=== PATIENT | male | born 1965 | race Hispanic/Latino ===

== ENCOUNTER 2016-11-10 10:08 | Emergency (ER) | payer SELFPAY ==
[2016-11-10] MEDS ORDERED: Ondansetron HCl/PF 4 MG/2 ML Vial ONE (11:09)
--- NOTE | 2016-11-10 11:43 | RAD ---
RIGHT ANKLE 2 VIEWS: DATE: 05/10/16. FINDINGS: The lateral view was omitted on this series. There does appear to be a calcaneal fracture which is detailed elsewhere. The remainder of the foot appeared intact. Degenerative changes are seen in th e 1st tarsal metatarsal joint. IMPRESSION: Calcaneal fracture. POS: HOME
--- NOTE | 2016-11-10 11:48 | RAD ---
RIGHT FOOT 3 VIEWS: DATE: 11/10/16. FINDINGS: There is a comminuted calcaneal fracture with slight distraction of some of the fragments. The frac ture line is seen mainly through the posterior part of the bone up to about its mid point. The talu s appears intact on these views. There is marked lateral swelling at the ankle, but no fracture or widening of the ankle mortise. Bony spurring at the tip of the medial malleolus is probably from an old injury. A small ossicle is seen at the tip of the lateral malleolus. IMPRESSION: Comminuted calcaneal fracture. POS: HOME
--- NOTE | 2016-11-10 12:20 | CT ---
CT OF THE RIGHT ANKLE AND FOOT: Date: 11-10-16 Technique: Axial slices were acquired and then coronal and sagittal reconstructions were done follow ing an injury. FINDINGS: A multiply comminuted fracture is present through the body of the calcaneus, mainly through the midp ortion of the bone and posteriorly. There is intraarticular extent of many of the fracture lines int o the talocalcaneal joint and into the calcaneal-cuboid joint. A small bony density on the dorsum of the navicular may not be acute. Considerable lateral swelling is seen over the lateral malleolus. T he lateral part of the ankle joint is somewhat wide so there may be significant ligamentous damage o n this side. The articulation of the tarsals with the metatarsal seems normal. I do not see a disloc ation here. Fractures in the distal portion of the joint were not appreciated. IMPRESSION: 1. Comminuted fracture of the calcaneus with intraarticular extension into the talocalcaneal and steve caneal cuboid joints. Fragments are somewhat displaced. 2. Possible old injury to the dorsum of the navicular. 3. Probable old trauma to the ankle, however, there is considerable lateral swelling and some wideni ng of the lateral tibiotalar joint. Thus, significant current ligamentous injury is suspected. POS: HOME
== END 2016-11-10 13:20 | disposition home or self-care (01) ==
LOC: BURERS 10:08
DX: S92.061A Displaced intraarticular fracture of right calcaneus, initial encounter for closed fracture (principal); Y93.39 Activity, other involving climbing, rappelling and jumping off; Y92.61 Building [any] under construction as the place of occurrence of the external cause
CPT/HCPCS: 96374; 96375; J2270; J2405